=== PATIENT | male | born 1935 | race Caucasian/White ===

== ENCOUNTER 2016-05-13 08:34 | Outpatient (CLI) | payer MEDICARE, OTHER | END 2016-05-13 08:35 | disposition home or self-care (01) | DX: I42.8 Other cardiomyopathies (principal); R06.09 Other forms of dyspnea ==

== ENCOUNTER 2016-10-19 07:25 | Outpatient (CLI) | payer MEDICARE, OTHER ==
[2016-10-19 13:33] LABS: BASOPHILS # (AUTO) 0.1 10^3/uL (0.0-0.1); BASOPHILS % (AUTO) 1.3 %; EOSINOPHILS # (AUTO) 0.7 10^3/uL (0.0-0.7); EOSINOPHILS % (AUTO) 9.4 %; HCT - HEMATOCRIT 38.8 % (42.0-52.0); HGB - HEMOGLOBIN 12.2 g/dL (14.0-18.0); LYMPHOCYTES # (AUTO) 1.4 10^3/uL (1.5-3.5); LYMPHOCYTES % (AUTO) 19.5 %; MEAN CORPUSCULAR HEMOGLOBIN 24.1 pg (27.0-31.0); MEAN CORPUSCULAR HGB CONC 31.5 g/dL (32.0-36.0); MEAN CORPUSCULAR VOLUME 76.5 fL (80.0-94.0); MONOCYTES # (AUTO) 0.6 10^3/uL (0.0-1.0); MONOCYTES % (AUTO) 8.2 %; NEUTROPHILS # (AUTO) 4.3 10^3/uL (1.5-6.6); NEUTROPHILS % (AUTO) 61.6 %; RED BLOOD COUNT 5.07 10^6/uL (4.70-6.10); RED CELL DISTRIBUTION WIDTH 16.1 % (12.0-15.0)
[2016-10-19 13:54] LABS: CALCIUM 8.9 mg/dL (8.5-10.3); CREATININE 1.3 mg/dL (0.6-1.2); POTASSIUM 4.1 mmol/L (3.5-5.0); TOTAL PROTEIN 7.3 g/dL (6.7-8.2)
[2016-10-19 13:56] LABS: HEMOGLOBIN A1C 0.83 g/dL
== END 2016-10-19 07:26 | disposition home or self-care (01) ==
LOC: LAB.WCP 07:25
PROVIDERS: ATTEND Family Medicine
DX: E11.9 Type 2 diabetes mellitus without complications (principal); I10 Essential (primary) hypertension
CPT/HCPCS: 36415; 80053; 83036; 85025

== ENCOUNTER 2017-03-08 11:03 | Outpatient (CLI) | payer MEDICARE, OTHER ==
[2017-03-08] MEDS ORDERED: IOPAMIDOL-300 50 ML VIAL ONE (11:11)
--- NOTE | 2017-03-08 16:09 | CT Report ---
CT ABDOMEN AND PELVIS WITHOUT CONTRAST: 03/08/2017 CLINICAL INDICATION: Constipation, anemia, chronic kidney disease. TECHNIQUE: Axial CT images of the abdomen and pelvis were obtained with oral contrast only. No prev ious CT is available for comparison. In accordance with CT protocol optimization, one or more of the following dose reduction techniques w ere utilized for this exam: automated exposure control, adjustment of mA and/or KV based on patient size, or use of iterative reconstructive technique. FINDINGS: Limited evaluation of the lung bases demonstrates changes of previous pacemaker placement. Abdomen: The liver, spleen, pancreas, kidneys, and adrenal glands appear unremarkable. The gallblad larissa is not dilated. No bowel dilatation, free gas, or free fluid is present. No abdominal adenopath y is seen. Pelvis: The pelvic organs appear unremarkable. No pelvic adenopathy or free fluid is present. Osseous structures demonstrate degenerative changes. IMPRESSION: NO EVIDENT ETIOLOGY FOR PATIENT'S CONSTIPATION AND ANEMIA. JOB #: [id number] EXT JOB #:[id number]
== END 2017-03-08 11:04 | disposition home or self-care (01) ==
LOC: DI 11:03
PROVIDERS: ATTEND Family Medicine
DX: K59.00 Constipation, unspecified (principal); D50.9 Iron deficiency anemia, unspecified; N18.3 Chronic kidney disease, stage 3 (moderate)
CPT/HCPCS: 74176; Q9967

== ENCOUNTER 2017-04-08 14:36 | Outpatient (CLI) | payer MEDICARE, OTHER ==
[2017-04-08 19:16] LABS: BASOPHILS # (AUTO) 0.1 10^3/uL (0.0-0.1); BASOPHILS % (AUTO) 0.7 %; EOSINOPHILS # (AUTO) 0.1 10^3/uL (0.0-0.7); EOSINOPHILS % (AUTO) 1.3 %; HCT - HEMATOCRIT 30.4 % (42.0-52.0); HGB - HEMOGLOBIN 9.5 g/dL (14.0-18.0); LYMPHOCYTES # (AUTO) 1.1 10^3/uL (1.5-3.5); LYMPHOCYTES % (AUTO) 13.3 %; MEAN CORPUSCULAR HEMOGLOBIN 23.9 pg (27.0-31.0); MEAN CORPUSCULAR HGB CONC 31.1 g/dL (32.0-36.0); MEAN CORPUSCULAR VOLUME 76.6 fL (80.0-94.0); MEAN PLATELET VOLUME 7.6 fL (7.4-11.4); MONOCYTES % (AUTO) 11.8 %; NEUTROPHILS # (AUTO) 5.9 10^3/uL (1.5-6.6); NEUTROPHILS % (AUTO) 72.9 %; NUCLEATED RED BLOOD CELLS AUTO 0.2 /100WBC; RED BLOOD COUNT 3.97 10^6/uL (4.70-6.10); RED CELL DISTRIBUTION WIDTH 16.3 % (12.0-15.0); UNCORRECTED WHITE BLOOD COUNT 8.1 x10^3/uL; WHITE BLOOD COUNT 8.1 x10^3/uL (4.8-10.8)
[2017-04-08 19:28] LABS: ALBUMIN/GLOBULIN RATIO 0.6 (1.0-2.2); BILIRUBIN,TOTAL 0.5 mg/dL (0.2-1.0); CALCIUM 9.4 mg/dL (8.5-10.3); CREATININE 1.1 mg/dL (0.6-1.2); POTASSIUM 4.6 mmol/L (3.5-5.0); TOTAL PROTEIN 7.9 g/dL (6.7-8.2)
== END 2017-04-08 14:37 | disposition home or self-care (01) ==
LOC: LAB.WCP 14:36
PROVIDERS: ATTEND Family Medicine
DX: R97.20 Elevated prostate specific antigen [PSA] (principal); R63.4 Abnormal weight loss
CPT/HCPCS: 36415; 80053; 84153; 85025

== ENCOUNTER 2017-04-18 17:11 | Emergency (ER) | payer MEDICARE, OTHER ==
--- NOTE | 2017-04-18 17:53 | ED Physician Documentation ---
PD HPI MALE - Stated complaint Stated Complaint: MALE - Chief complaint Chief Complaint: General - History obtained from History obtained from: Patient - History of Present Illness Timing - onset: How many days ago (2) Timing - duration: Days (2) Timing - details: Gradual onset, Waxing and waning Associated symptoms: Unable to urinate (only small amounts and does not feel he is emptying.) Similar symptoms before: Has not had sx before (weaker stream due to prostate and is on Flomax. Has not had retention before.) Recently seen: Not recently seen Review of Systems Constitutional: denies: Fever, Chills Nose: denies: Rhinorrhea / runny nose, Congestion Throat: denies: Sore throat Respiratory: denies: Cough GI: denies: Vomiting, Diarrhea : reports: Hesitancy. denies: Dysuria Skin: denies: Rash PD PAST MEDICAL HISTORY - Past Medical History Past Medical History: Yes Cardiovascular: Hypertension, High cholesterol Endocrine/Autoimmune: Type 2 diabetes - Past Surgical History Past Surgical History: Yes General: Colonoscopy - Present Medications Home Medications: Ambulatory Orders Medication Instructions Recorded Confirmed Insulin Glargine,Hum.rec.anlog 25 unit SQ 02/02/13 10/09/13 [Lantus] Aspirin Chewable [St Rafal 04/18/17 Aspirin] Carvedilol 25 mg PO 04/18/17 Furosemide [Lasix] 20 mg PO DAILY 04/18/17 04/18/17 Losartan [Cozaar] 100 mg PO DAILY 04/18/17 04/18/17 Tamsulosin [Flomax] 0.4 mg PO DAILY 04/18/17 04/18/17 - Allergies Allergies/Adverse Reactions: Allergies Allergy/AdvReac Type Severity Reaction Status Date / Time No Known Drug Allergies Allergy Unverified 02/01/13 10:56 - Social History Does the pt smoke?: No Smoking Status: Never smoker Does the pt drink ETOH?: No Does the pt have substance abuse?: No - POLST Patient has POLST: No PD ED PE NORMAL - Vitals Vital signs reviewed: Yes - General General: Alert and oriented X 3, No acute distress, Well developed/nourished - Cardiac Cardiac: RRR, No murmur - Respiratory Respiratory: Clear bilaterally - Abdomen Abdomen: Normal bowel sounds, Soft, No organomegaly, Other (tender suprapubic area with fullness. ) - Male Male : Other (normal external genitalia. ) Results - Vitals Vitals: Oxygen O2 Source Room air - Labs Labs: Laboratory Tests 04/18/17 04/18/17 18:24 18:34 POC Whole Bld Glucose 206 H Urine Color YELLOW Urine Clarity HAZY Urine pH 6.0 Ur Specific [place] 1.010 Urine Protein NEGATIVE Urine Glucose (UA) NEGATIVE Urine Ketones NEGATIVE Urine Occult Blood LARGE H Urine Nitrite NEGATIVE Urine Bilirubin NEGATIVE Urine Urobilinogen 0.2 (NORMAL) Ur Leukocyte Esterase NEGATIVE Urine RBC TNTC H Urine WBC 0-3 Ur Squamous Epith Cells NONE SEEN Urine Bacteria None Seen Ur Microscopic Review INDICATED Urine Culture Comments NOT INDICATED PD MEDICAL DECISION MAKING - ED course Complexity details: re-evaluated patient (feeling better with mesa. He is already on Flomax. No signs of UTI. ), considered differential, d/w patient Departure - Departure Disposition: Home, Self Care Clinical Impression: Acute urinary retention Condition: Stable Record reviewed to determine appropriate education?: Yes Instructions: ED Catheter Care [place] Follow-Up: Jadiel Snowden MD [Primary Care Provider] - Comments: Keep the Mes[place] catheter in until follow-up. Follow-up with your primary care in about 3-5 days, call for an appointment on Wednesday. Continue your current medications including Flomax. Discharge Date/Time: 04/18/17 19:37
[2017-04-18] MEDS ORDERED: LIDOCAINE 2% URO-JET 5 ML SYRINGE UR STA ×2 (18:20→18:22)
[2017-04-18 18:48] LABS: BILIRUBIN,URINE NEGATIVE (NEGATIVE); UA w/ MICROSCOPIC CHARGE YES
[2017-04-18 18:54] VITALS: BP 124/77
[2017-04-18 18:56] LABS: UR CULTURE IF IND NOT INDICATED; WBC,URINE 0-3 /HPF (0-3)
== END 2017-04-18 19:37 | disposition home or self-care (01) ==
LOC: ED 17:11
DX: R33.9 Retention of urine, unspecified (principal); I10 Essential (primary) hypertension; E78.00 Pure hypercholesterolemia, unspecified; E11.9 Type 2 diabetes mellitus without complications; Z79.4 Long term (current) use of insulin; Z79.82 Long term (current) use of aspirin
CPT/HCPCS: 51702; 81001; 81003; 87086; 99282; 99283

== ENCOUNTER 2017-04-24 19:01 | Emergency (ER) | payer MEDICARE, OTHER ==
[2017-04-24] MEDS ORDERED: HYDROcod/ACETAM 5/325 MG TABLET PO STA (20:05)
[2017-04-24 20:07] LABS: BILIRUBIN,URINE NEGATIVE (NEGATIVE); GLUCOSE, URINE (UA) NEGATIVE (NEGATIVE); KETONES,URINE (UA) NEGATIVE (NEGATIVE); LEUKOCYTE ESTERASE, URINE MODERATE (NEGATIVE); NITRITE,URINE NEGATIVE (NEGATIVE); OCCULT BLOOD,URINE LARGE (NEGATIVE); PH,URINE 7.5 PH (5.0-7.5); PROTEIN,URINE 30 mg/dL (NEGATIVE); UROBILINOGEN,URINE 0.2 (NORMAL) E.U./dL (NORMAL)
--- NOTE | 2017-04-24 20:07 | ED Physician Documentation ---
PD HPI ABD PAIN - Stated complaint Stated Complaint: BODY ACHES - Chief complaint Chief Complaint: Abd Pain - History obtained from History obtained from: Patient, Family - History of Present Illness Timing - onset: Other (81-year-old with history of prostate issues and diabetes , AICD in place. He was seen here last Wednesday, week ago for urinary retention , had a Pacheco placed. Followed up with his doctor on Wednesday and was started on Bactrim. After that developed severe generalized body aches, poor appetite, cannot sleep because of the pain. There is no associated fever. He feels like he is having urinary urgency and dysuria despite the catheter being in place.) Review of Systems Constitutional: reports: Myalgias, Fatigue. denies: Fever, Chills Nose: denies: Rhinorrhea / runny nose, Congestion Respiratory: denies: Dyspnea, Cough GI: reports: Nausea. denies: Abdominal Pain, Vomiting PD PAST MEDICAL HISTORY - Past Medical History Past Medical History: Yes Cardiovascular: Hypertension, High cholesterol Endocrine/Autoimmune: Type 2 diabetes - Past Surgical History Past Surgical History: Yes General: Colonoscopy - Present Medications Home Medications: Ambulatory Orders Medication Instructions Recorded Confirmed Insulin Glargine,Hum.rec.anlog 25 unit SQ 02/02/13 10/09/13 [Lantus] Aspirin Chewable [St Rafal 1 tab PO DAILY 04/18/17 Aspirin] Carvedilol 25 mg PO 04/18/17 Furosemide [Lasix] 20 mg PO DAILY 04/18/17 04/18/17 Losartan [Cozaar] 100 mg PO DAILY 04/18/17 04/18/17 Tamsulosin [Flomax] 0.4 mg PO DAILY 04/18/17 04/18/17 Ciprofloxacin [Cipro] 250 mg PO Q12H #20 tablet 04/24/17 HYDROcod/ACETAM 5/325 [[place] 5/325] 1 - 2 ea PO Q6H PRN #15 tablet 04/24/17 Sulfamethoxazole/Trimethoprim 1 tab PO DAILY 04/24/17 04/24/17 [Bactrim 400-80 mg Tablet] - Allergies Allergies/Adverse Reactions: Allergies Allergy/AdvReac Type Severity Reaction Status Date / Time No Known Drug Allergies Allergy Verified 04/24/17 20:05 - Social History Does the pt smoke?: No Smoking Status: Never smoker Does the pt drink ETOH?: No Does the pt have substance abuse?: No - POLST Patient has POLST: No PD ED PE NORMAL - Vitals Vital signs reviewed: Yes - General General: Alert and oriented X 3, No acute distress - HEENT HEENT: PERRL, EOMI - Neck Neck: Supple, no meningeal sign, No bony TTP - Cardiac Cardiac: RRR, No murmur - Respiratory Respiratory: No respiratory distress, Clear bilaterally - Abdomen Abdomen: Normal bowel sounds, Soft, Non tender - Male Male : Other (Catheter in place, uncircumcised, mild balanitis, but no abrasion.) - Back Back: No CVA TTP, No spinal TTP - Derm Derm: Normal color, Warm and dry, No rash - Extremities Extremities: No deformity, No tenderness to palpate, Normal ROM s pain, No edema , No calf tenderness / cord - Neuro Neuro: Alert and oriented X 3, Normal speech - Psych Psych: Normal mood, Normal affect Results - Vitals Vitals: Vital Signs - 24 hr 04/24/17 19:04 Temperature 36.7 C Heart Rate 117 H Respiratory 18 Rate Blood Pressure 125/69 O2 Saturation 97 Oxygen O2 Source Room air - Labs Labs: Laboratory Tests 04/24/17 04/24/17 04/24/17 19:51 19:51 19:53 WBC 7.9 RBC 4.00 L Hgb 9.3 L Hct 30.0 L MCV 75.0 L MCH 23.2 L MCHC 31.0 L RDW 16.9 H Plt Count 410 MPV 7.2 L Neut # 5.9 Lymph # 1.0 L [place] # 0.9 Eos # 0.1 Baso # 0.1 Absolute Nucleated RBC 0.00 Nucleated RBC % 0.0 Sodium 137 Potassium 4.4 Chloride 100 L Carbon Dioxide 29 Anion Gap 8.0 BUN 25 H Creatinine 1.5 H Estimated GFR (MDRD) 45 L Glucose 182 H Calcium 9.0 Total Bilirubin 0.8 AST 21 ALT 31 Alkaline Phosphatase 225 H Total Protein 7.8 Albumin 2.8 L Globulin 5.0 H Albumin/Globulin Ratio 0.6 L Lipase 12 L Urine Color RED/BLOODY Urine Clarity SL. CLOUDY Urine pH 7.5 Ur Specific [place] 1.015 Urine Protein 30 H Urine Glucose (UA) NEGATIVE Urine Ketones NEGATIVE Urine Occult Blood LARGE H Urine Nitrite NEGATIVE Urine Bilirubin NEGATIVE Urine Urobilinogen 0.2 (NORMAL) Ur Leukocyte Esterase MODERATE H Urine RBC TNTC H Urine WBC 11-25 H Ur Squamous Epith Cells FEW Squamous Urine Bacteria Few Ur Microscopic Review INDICATED Urine Culture Comments INDICATED PD MEDICAL DECISION MAKING - ED course ED course: 81-year-old with generalized symptoms of body aches without fevers, this started shortly after starting Bactrim with the Pacheco in place, so could be the UTI versus a side effect of the Bactrim. A Pacheco was removed. He was started on Cipro and we will discontinue the Bactrim. He felt much better after a Vicodin here. He wanted to wait for a while and see if he would be able to urinate again, he was given oral fluids and was unable to urinate here so the Pacheco was replaced. Departure - Departure Disposition: 01 Home, Self Care Clinical Impression: Body aches Urinary tract infection Qualifiers: Urinary tract infection type: catheter-associated UTI Indwelling urinary catheter type: indwelling urethral catheter Encounter type: initial encounter Qualified Code(s): T83.511A - Infection and inflammatory reaction due to indwelling urethral catheter, initial encounter Condition: Good Record reviewed to determine appropriate education?: Yes Instructions: ED UTI Cystitis Male Prescriptions: Ciprofloxacin [Cipro] 250 mg PO Q12H #20 tablet HYDROcod/ACETAM 5/325 [[place] 5/325] 1 - 2 ea PO Q6H PRN #15 tablet PRN Reason: Pain Comments: Drink plenty fluids and return if worse. As discussed it is not clear if your symptoms are from a UTI versus a side effect of the medication. Regardless we are switching your antibiotic. Follow-up with your doctor in a few days. Follow up with Dr. Snowden on Wednesday as scheduled.
[2017-04-24 20:11] LABS: CLARITY,URINE SL. CLOUDY (CLEAR)
[2017-04-24 20:15] LABS: BASOPHILS # (AUTO) 0.1 10^3/uL (0.0-0.1); BASOPHILS % (AUTO) 0.9 %; EOSINOPHILS # (AUTO) 0.1 10^3/uL (0.0-0.7); EOSINOPHILS % (AUTO) 0.8 %; HGB - HEMOGLOBIN 9.3 g/dL (14.0-18.0); LYMPHOCYTES % (AUTO) 13.2 %; MEAN CORPUSCULAR HEMOGLOBIN 23.2 pg (27.0-31.0); MEAN PLATELET VOLUME 7.2 fL (7.4-11.4); MONOCYTES # (AUTO) 0.9 10^3/uL (0.0-1.0); MONOCYTES % (AUTO) 10.8 %; NEUTROPHILS # (AUTO) 5.9 10^3/uL (1.5-6.6); NEUTROPHILS % (AUTO) 74.3 %; PLT - PLATELET COUNT 410 10^3/uL (130-450); RED CELL DISTRIBUTION WIDTH 16.9 % (12.0-15.0); WHITE BLOOD COUNT 7.9 x10^3/uL (4.8-10.8)
[2017-04-24 20:16] LABS: BACTERIA,URINE Few /HPF (None Seen); RBC,URINE TNTC /HPF (0-5); SQUAMOUS EPITHELIAL CELL,UR FEW Squamous (<= Few)
[2017-04-24 20:27] LABS: ALBUMIN 2.8 g/dL (3.2-5.5); ALBUMIN/GLOBULIN RATIO 0.6 (1.0-2.2); BILIRUBIN,TOTAL 0.8 mg/dL (0.2-1.0); CREATININE 1.5 mg/dL (0.6-1.2); TOTAL PROTEIN 7.8 g/dL (6.7-8.2)
[2017-04-24] MEDS ORDERED: CIPROFLOXACIN 250 MG TABLET PO STA (20:50)
[2017-04-24] MEDS ORDERED: HYDROcod/ACET 5/325 Prepack 6 PO STA (20:50)
[2017-04-24 22:55] VITALS: BP 151/58
== END 2017-04-24 22:50 | disposition home or self-care (01) ==
LOC: ED 19:01
DX: M79.1 Myalgia (principal); T83.511A Infection and inflammatory reaction due to indwelling urethral catheter, initial encounter; E11.9 Type 2 diabetes mellitus without complications; I10 Essential (primary) hypertension; E78.00 Pure hypercholesterolemia, unspecified; Z95.810 Presence of automatic (implantable) cardiac defibrillator; Z79.4 Long term (current) use of insulin; Z79.82 Long term (current) use of aspirin
CPT/HCPCS: 36415; 51702; 51798; 80053; 81001; 83690; 85025; 87086; 99283; A9270; 81003

== ENCOUNTER 2017-05-07 16:17 | Outpatient (CLI) | payer MEDICARE, OTHER ==
[2017-05-07 18:59] LABS: BASOPHILS # (AUTO) 0.1 10^3/uL (0.0-0.1); BASOPHILS % (AUTO) 0.7 %; EOSINOPHILS % (AUTO) 0.1 %; HGB - HEMOGLOBIN 8.1 g/dL (14.0-18.0); LYMPHOCYTES % (AUTO) 11.1 %; MEAN CORPUSCULAR HEMOGLOBIN 22.4 pg (27.0-31.0); MEAN CORPUSCULAR VOLUME 74.6 fL (80.0-94.0); MEAN PLATELET VOLUME 7.5 fL (7.4-11.4); MONOCYTES % (AUTO) 11.1 %; NEUTROPHILS # (AUTO) 6.8 10^3/uL (1.5-6.6); PLT - PLATELET COUNT 422 10^3/uL (130-450); RED BLOOD COUNT 3.61 10^6/uL (4.70-6.10); RED CELL DISTRIBUTION WIDTH 17.5 % (12.0-15.0); WHITE BLOOD COUNT 8.8 x10^3/uL (4.8-10.8)
[2017-05-07 19:18] LABS: ALBUMIN 2.6 g/dL (3.2-5.5); ALBUMIN/GLOBULIN RATIO 0.6 (1.0-2.2); BILIRUBIN,TOTAL 0.8 mg/dL (0.2-1.0); CALCIUM 8.6 mg/dL (8.5-10.3); CREATININE 1.5 mg/dL (0.6-1.2); TOTAL PROTEIN 7.3 g/dL (6.7-8.2)
== END 2017-05-07 16:18 | disposition home or self-care (01) ==
LOC: LAB.WCP 16:17
PROVIDERS: ATTEND Family Medicine
DX: R63.4 Abnormal weight loss (principal); R97.20 Elevated prostate specific antigen [PSA]; K59.00 Constipation, unspecified; D50.9 Iron deficiency anemia, unspecified; N18.3 Chronic kidney disease, stage 3 (moderate)
CPT/HCPCS: 36415; 80053; 82378; 85025

== ENCOUNTER 2017-05-27 05:54 | Outpatient (CLI) | payer MEDICARE, OTHER | END 2017-05-27 05:55 | disposition short-term general hospital (02) | LOC: EMS 05:54 | PROVIDERS: ATTEND Surgery | DX: R53.1 Weakness (principal) | CPT/HCPCS: A0425; A0429 ==

== ENCOUNTER 2017-06-01 17:01 | Outpatient (CLI) | payer MEDICARE, OTHER ==
[2017-06-01 18:54] LABS: EOSINOPHILS % (AUTO) 2.9 %; HGB - HEMOGLOBIN 8.9 g/dL (14.0-18.0); LYMPHOCYTES % (AUTO) 20.7 %; MEAN CORPUSCULAR HEMOGLOBIN 23.9 pg (27.0-31.0); MEAN CORPUSCULAR HGB CONC 30.5 g/dL (32.0-36.0); MEAN CORPUSCULAR VOLUME 78.2 fL (80.0-94.0); MONOCYTES % (AUTO) 9.3 %; NEUTROPHILS % (AUTO) 66.1 %; PLT - PLATELET COUNT 497 10^3/uL (130-450); RED BLOOD COUNT 3.72 10^6/uL (4.70-6.10); WHITE BLOOD COUNT 6.7 x10^3/uL (4.8-10.8)
[2017-06-01 19:12] LABS: ABNORMAL LYMPHS % (MANUAL) 0 %; BAND NEUTROPHILS % (MANUAL) 0 %
[2017-06-01 19:15] LABS: ALBUMIN 2.6 g/dL (3.2-5.5); ALBUMIN/GLOBULIN RATIO 0.5 (1.0-2.2); BILIRUBIN,TOTAL 0.2 mg/dL (0.2-1.0); CALCIUM 8.9 mg/dL (8.5-10.3); CREATININE 1.2 mg/dL (0.6-1.2); TOTAL PROTEIN 7.5 g/dL (6.7-8.2)
[2017-06-01 19:18] LABS: DIFFERENTIAL COMMENT MANUAL DIFFERENTIAL; EOSINOPHILS # (MANUAL) 0.3 10^3/uL (0-0.7); LYMPHOCYTES # (MANUAL) 1.2 10^3/uL (1.5-3.5); LYMPHOCYTES % (MANUAL) 18 %; MONOCYTES # (MANUAL) 0.7 10^3/uL (0.0-1.0); MYELOCYTES % (MANUAL) 1 %; NEUTROPHILS # (MANUAL) 4.4 10^3/uL (1.5-6.6); NEUTROPHILS % (MANUAL) 65 %; PLATELET ESTIMATE, MANUAL INCREASED (>450,000) (NORMAL); PLATELET MORPHOLOGY NORMAL APPEARANCE (NORMAL)
== END 2017-06-01 17:02 | disposition home or self-care (01) ==
LOC: LAB.WCP 17:01
PROVIDERS: ATTEND Family Medicine
DX: D50.9 Iron deficiency anemia, unspecified (principal); R97.20 Elevated prostate specific antigen [PSA]; N18.3 Chronic kidney disease, stage 3 (moderate)
CPT/HCPCS: 36415; 80053; 85025

== ENCOUNTER 2017-08-02 08:00 | Outpatient (CLI) | payer MEDICARE, OTHER | END 2017-08-02 08:01 | disposition home or self-care (01) | LOC: LAB.R 08:00 | PROVIDERS: ATTEND Physician Assistant Medical | DX: C61 Malignant neoplasm of prostate (principal) | CPT/HCPCS: 87086 ==

== ENCOUNTER 2018-02-10 15:49 | Outpatient (CLI) | payer MEDICARE, OTHER | END 2018-02-10 15:50 | disposition EMS.NT | LOC: EMS 15:49 | PROVIDERS: ATTEND Surgery | DX: R61 Generalized hyperhidrosis (principal); R55 Syncope and collapse ==

== ENCOUNTER 2018-05-16 08:00 | Outpatient (CLI) | payer MEDICARE, OTHER ==
[2018-05-16 18:50] LABS: BASOPHILS % (AUTO) 0.3 %; EOSINOPHILS % (AUTO) 0.7 %; HGB - HEMOGLOBIN 8.9 g/dL (14.0-18.0); LYMPHOCYTES % (AUTO) 3.1 %; MEAN CORPUSCULAR HEMOGLOBIN 27.2 pg (27.0-31.0); MEAN CORPUSCULAR HGB CONC 30.2 g/dL (32.0-36.0); MEAN CORPUSCULAR VOLUME 89.8 fL (80.0-94.0); MEAN PLATELET VOLUME 8.3 fL (7.4-11.4); NEUTROPHILS % (AUTO) 95.9 %; PLT - PLATELET COUNT 126 10^3/uL (130-450); RED CELL DISTRIBUTION WIDTH 18.6 % (12.0-15.0); WHITE BLOOD COUNT 33.7 x10^3/uL (4.8-10.8)
[2018-05-16 18:53] LABS: ABNORMAL LYMPHS % (MANUAL) 0 %
[2018-05-16 18:58] LABS: CREATININE,URINE 120.5 mg/dL
[2018-05-16 19:17] LABS: CALCIUM 7.5 mg/dL (8.5-10.3); CREATININE 1.1 mg/dL (0.6-1.2)
[2018-05-16 19:38] LABS: MICROALBUM/CREATININE RATIO,UR 436.5 ug/mg (<30.0); MICROALBUMIN,URINE 52.6 mg/dL (0-300.0)
[2018-05-16 20:20] LABS: HB2 TOTAL 9.3 g/dL; HEMOGLOBIN A1C 0.43 g/dL; HEMOGLOBIN A1C % 6.4 % (4.6-6.2)
[2018-05-16 20:32] LABS: BAND NEUTROPHILS % (MANUAL) 16 %; LYMPHOCYTES # (MANUAL) 0.7 10^3/uL (1.5-3.5); LYMPHOCYTES % (MANUAL) 2 %; METAMYELOCYTES % (MANUAL) 2 %; MYELOCYTES % (MANUAL) 1 %; NEUTROPHILS # (MANUAL) 29.7 10^3/uL (1.5-6.6); NEUTROPHILS % (MANUAL) 72 %; PROMYELOCYTES % (MANUAL) 1 %
[2018-05-16 20:44] LABS: DIFFERENTIAL COMMENT MANUAL DIFFERENTIAL; PLATELET ESTIMATE, MANUAL DECREASED (<130,000) (NORMAL); PLATELET MORPHOLOGY NORMAL APPEARANCE (NORMAL)
== END 2018-05-16 23:59 | disposition home or self-care (01) ==
LOC: LAB.WCP 08:00
PROVIDERS: ATTEND Family Medicine
DX: E11.9 Type 2 diabetes mellitus without complications (principal); D72.829 Elevated white blood cell count, unspecified
CPT/HCPCS: 36415; 80048; 82043; 82570; 83036; 85025

== ENCOUNTER 2018-05-18 14:05 | Outpatient (CLI) | payer MEDICARE, OTHER | END 2018-05-18 14:06 | disposition home or self-care (01) | LOC: EMS 14:05 | PROVIDERS: ATTEND Surgery | DX: I46.9 Cardiac arrest, cause unspecified (principal); C61 Malignant neoplasm of prostate; I25.10 Atherosclerotic heart disease of native coronary artery without angina pectoris; E11.9 Type 2 diabetes mellitus without complications | CPT/HCPCS: A0425; A0433 ==

== ENCOUNTER 2018-05-18 14:24 | Emergency (ER) | payer MEDICARE, OTHER ==
[2018-05-18] MEDS ORDERED: EPINEPHrine ABBOJECT 1 MG/10 ML SYRINGE IVP ONE (14:25)
[2018-05-18 14:40] VITALS: BP 51/27
[2018-05-18] MEDS ORDERED: ALTEPLASE IV ONE (14:45)
[2018-05-18] MEDS ORDERED: WATER FOR INJECTION STERILE IV ONE (14:45)
--- NOTE | 2018-05-18 14:49 | ED Physician Documentation ---
PD HPI CHEST PAIN - Stated complaint Stated Complaint: CPR - Chief complaint Chief Complaint: Cardiac - History obtained from History obtained from: EMS - History of Present Illness Timing - onset: Today (This is an 82-year-old gentleman brought in by ambulance for cardiac arrest. 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 He has a [facility] ST at home stating DNR/DNI, however had not been signed yet and to the did want CPR started reportedly. Reportedly he had not been feeling well and then arrested after 911 was called. On arrival he is been undergoing CPR for about an hour, he did have about 5 minutes of return of spontaneous circulation but has otherwise been in PEA and has received 5 doses of epinephrine and 2 doses of sodium bicarb on arrival. Blood sugar was in the 130s.) Review of Systems Unable to obtain: Intubated PD ED PE NORMAL - General General: Other (Intubated without spontaneous respirations. Bilateral breath sounds are equal. Pupils are fixed and dilated.) - Cardiac Cardiac: Other (Pacemaker in place, left upper chest wall) - Extremities Extremities: Other (Bloody urine and a Pacheco that is already in place. IO in the right tibia. Unna boots on both sides.) Results - Vitals Vitals: Vital Signs - 24 hr 05/18/18 14:29 Heart Rate 78 Blood Pressure 51/27 L PD MEDICAL DECISION MAKING - ED course ED course: This is an 82-year-old gentleman with reported end-stage prostate cancer who presents with cardiac arrest. He is in PEA on arrival. CPR was continued and he was given 3 rounds of epinephrine in the department. Bedside ultrasound was done showing a small pericardial effusion and very poor wall motion but some cardiac motion without a pulse for the most part. Given what I know about this patient's pulmonary embolism was highest on the differential and TPA was given but he continued to decline with regard to cardiac motion and lost any palpable pulse in the code was called at 1444. Departure - Departure Disposition: 20 Clinical Impression: Sudden , Prostate cancer
== END 2018-05-18 15:00 | disposition expired ==
LOC: EDBD → MERGE 14:24 → ED 14:24
DX: I46.9 Cardiac arrest, cause unspecified (principal); I26.99 Other pulmonary embolism without acute cor pulmonale; C61 Malignant neoplasm of prostate
CPT/HCPCS: 92950; 94770; 96374; 99283; 99285; J2997